=== PATIENT | female | born 1995 | race Caucasian/White ===

== ENCOUNTER 2021-02-07 09:09 | Inpatient (IN) ==
[2021-02-07] MEDS ORDERED: Ondansetron 4 MG/2 ML VIAL IVP PRN (09:22)
[2021-02-07] MEDS ORDERED: Famotidine 20 MG/2 ML VIAL IVP PRN (09:22)
[2021-02-07] MEDS ORDERED: Azithromycin 500 MG in 0.9 % Sodium Chloride 250 ML IVPB PRN (09:22)
[2021-02-07] MEDS ORDERED: Metoclopramide 10 MG/2 ML VIAL IVP PRN (09:22)
[2021-02-07] MEDS ORDERED: *HR* Nalbuphine 10 MG/ML AMPUL IV PRN (09:22)
[2021-02-07] MEDS ORDERED: Naloxone 0.4 MG/ML INJ IVP PRN (09:22)
[2021-02-07] MEDS ORDERED: Lidocaine 1% 20 ML MDV INFILT PRN (09:22)
[2021-02-07] MEDS ORDERED: Penicillin G Potassium 5,000,000 UNIT in 0.9 % Sodium Chloride Mini Bag 100 ML IVPB ONE (11:12)
[2021-02-07] MEDS: Ringers Solution, Lactated 1,000 ML IVC SCH ×2 (11:27→19:56)
[2021-02-07 11:28] LABS: Basophils % 0.3 %; Eosinophils # 0.1 K/mcL (0.0-0.6); Eosinophils % 0.5 %; Hemoglobin 10.9 g/dL (11.5-15.4); Immature Granulocytes % 1.4 % (0-4); Lymphocytes # 1.9 K/mcL (0.6-4.6); Lymphocytes % 18.9 %; Mean Corpuscular Hemoglobin 27.2 pg (28.0-33.3); Mean Corpuscular Volume 82.3 fL (83.0-100.0); Mean Platelet Volume 11.2 fL (9.4-12.4); Monocytes # 0.7 K/mcL (0.0-1.3); Monocytes % 6.7 %; Neutrophils # 7.2 K/mcL (1.6-8.9); Platelet Count 226 K/mcL (140-400); Red Blood Count 4.01 M/mcL (3.82-4.97); Red Cell Distribution Width 14.3 % (11.5-14.5); Segmented Neutrophils % 72.2 %
[2021-02-07 11:39] LABS: Amphetamine Screen,Urine Negative ng/mL (Cutoff=1000); Barbiturate Screen,Urine Negative ng/mL (Cutoff=200); Benzodiazepines Screen,Urine Negative ng/mL (Cutoff=200); Cannabinoid Screen,Urine Negative ng/mL (Cutoff = 50); Cocaine Screen,Urine Negative ng/mL (Cutoff= 300); Opiate Screen,Urine Negative ng/mL (Cutoff=300); Phencyclidine Screen,Urine Negative ng/mL (Cutoff=25)
[2021-02-07 12:35] LABS: Influenza A PCR Negative (Negative); Influenza B PCR Negative (Negative); Resp. Syncytial Virus PCR Negative (Negative); SARS-CoV-2 by PCR (In House) Negative (Negative)
[2021-02-07] MEDS ORDERED: EPHEDrine 50 MG/ML VIAL IVP PRN (13:56)
[2021-02-07] MEDS ORDERED: Epidural Premix (fent/bupiv) 110 ML EP SCH (14:00)
[2021-02-07] MEDS: Penicillin G Potassium 2,500,000 UNIT/105 ML MLS IVPB SCH ×2 (15:23→19:55)
[2021-02-07] MEDS ORDERED: Oxytocin 20 units/ LR 1000 mL 20 UNIT/1,000 ML BAG IVC ONE (20:45)
[2021-02-07] MEDS ORDERED: Oxytocin 20 units/ LR 1000 mL 20 UNIT/1,000 ML BAG IVC SCH ×2 (21:00→21:15)
[2021-02-08] MEDS: Penicillin G Potassium 2,500,000 UNIT/105 ML MLS IVPB SCH ×2 (00:03→04:09)
[2021-02-08] MEDS: Ringers Solution, Lactated 1,000 ML IVC SCH (01:30)
[2021-02-08] MEDS ORDERED: Lanolin 7 G OINT...G. TP PRN (06:12)
[2021-02-08] MEDS ORDERED: Measles/Mumps/Rubella Vacc 0.5 ML VIAL SQ PRN (06:12)
[2021-02-08] MEDS ORDERED: Oxytocin 20 units/ LR 1000 mL 20 UNIT/1,000 ML BAG IVC SCH (06:12)
[2021-02-08] MEDS ORDERED: Benzocaine/Menthol 56 GM AEROSOL SPRAY TP PRN (06:12)
[2021-02-08] MEDS ORDERED: Rho Immune Globulin 1,500 UNIT SYRINGE IM PRN (06:12)
[2021-02-08] MEDS ORDERED: Ondansetron ODT 4 MG TAB.RAPDIS SL PRN (06:12)
[2021-02-08] MEDS ORDERED: Oxytocin 20 units/ LR 1000 mL 20 UNIT/1,000 ML BAG IVC ONE (06:16)
[2021-02-08] MEDS: Acetaminophen 325 MG TABLET PO SCH ×3 (06:37→23:44)
[2021-02-08] MEDS: Prenatal Vit/FA 1 EACH TABLET PO SCH (08:31)
[2021-02-08] MEDS: Ibuprofen 600 MG TABLET PO SCH ×2 (08:31→23:43)
[2021-02-08 20:18] VITALS: O2SAT 98
[2021-02-09] MEDS: Ibuprofen 600 MG TABLET PO SCH (06:54)
[2021-02-09] MEDS: Acetaminophen 325 MG TABLET PO SCH (06:55)
[2021-02-09 07:09] VITALS: BP 104/68; PULSE 67; TEMP 97.6
[2021-02-09] MEDS: Prenatal Vit/FA 1 EACH TABLET PO SCH (09:29)
== END 2021-02-09 10:01 | disposition home or self-care (01) | DRG 807 ==
LOC: 1NENULAB 09:09 → 1NENUOBS 02-08 07:38
PROVIDERS: ADMIT Registered Nurse; ATTEND Registered Nurse